=== PATIENT | male | born 1995 | race Caucasian/White ===

== ENCOUNTER 2022-04-16 15:55 | Emergency (ER) | payer OTHER, SELFPAY ==
[~2022-04-16 15:55] MED LIST: Iopamidol 370 76% 100 ML VIAL ONE
[2022-04-16] MEDS ORDERED: HYDROcodone/Acetaminophen 10/325 mg Tablet ONE (16:23)
== END 2022-04-16 17:57 | disposition home or self-care (01) ==
LOC: MADERS 15:55
DX: S30.810A Abrasion of lower back and pelvis, initial encounter (principal); S70.212A Abrasion, left hip, initial encounter; S50.312A Abrasion of left elbow, initial encounter; S60.512A Abrasion of left hand, initial encounter; F17.290 Nicotine dependence, other tobacco product, uncomplicated; V86.56XA Driver of dirt bike or motor/cross bike injured in nontraffic accident, initial encounter
CPT/HCPCS: 74177; Q9967